=== PATIENT | male | born 1985 | race Caucasian/White ===

== ENCOUNTER 2020-09-15 06:52 | Outpatient (CLI) | payer OTHER ==
[2020-09-15 17:22] LABS: #Basophils 0.1 10x3/uL (0.0-0.2); #Eosinphils 0.3 10x3/uL (0.0-0.5); #Monocytes 0.8 10x3/uL (0.0-1.1); #Neutrophils 5.2 10x3/uL (1.5-8.4); %Basophils 0.8 % (0.0-2.0); %Eosinophils 3.4 % (0.0-6.0); %Lymphocytes 35.3 % (18.0-47.0); %Neutrophils 52.3 % (40.0-75.0); Hemoglobin 15.2 g/dL (14.0-18.0); Mean Corpuscular Hemoglobin 31.3 PG (27.0-33.0); Mean Corpuscular Volume 94.7 fl (80.0-100.0); Mean Platelet Volume 10.8 fl (7.4-10.4); Platelet Count 314 10x3/uL (130-400); RBC Distribution Width 13.6 % (11.5-14.5); Red Blood Cell (RBC) Count 4.86 10x6/uL (4.40-5.80); White Blood Cell (WBC) Count 9.9 10x3/uL (4.5-11.0)
[2020-09-16 02:13] LABS: SARS-CoV-2 MS2 Positive; SARS-CoV-2 N Gene Negative; SARS-CoV-2 S Gene Negative; SARS-CoV-2 by NAA Not Detected (NotDetected); SARS-CoV-2 orf1ab Negative
== END 2020-09-15 06:53 | disposition home or self-care (01) ==
LOC: LABBT 06:52
PROVIDERS: ATTEND Orthopaedic Surgery
DX: Z01.812 Encounter for preprocedural laboratory examination (principal); Z20.828 Contact with and (suspected) exposure to other viral communicable diseases; S83.281A Other tear of lateral meniscus, current injury, right knee, initial encounter; S83.241A Other tear of medial meniscus, current injury, right knee, initial encounter; M23.8X1 Other internal derangements of right knee
CPT/HCPCS: 85025; 87635; U0003

== ENCOUNTER 2020-09-18 06:09 | Day surgery (SDC) | payer OTHER ==
[2020-09-17 12:51] VITALS: BMI 23.7
[2020-09-18] MEDS ORDERED: Lidocaine 1% (PF) 30 ML VIAL ONE (06:41)
[2020-09-18] MEDS ORDERED: Fentanyl 100 MCG/2 ML VIAL ONE ×3 (06:41→09:41)
[2020-09-18] MEDS ORDERED: Midazolam HCl 2 mg/2 ml Vial ONE ×2 (06:41→07:29)
[2020-09-18] MEDS ORDERED: Fentanyl 100 MCG/2 ML VIAL SLOW IVP PRN (07:19)
[2020-09-18] MEDS ORDERED: Promethazine HCl 25 MG/ML VIAL IM PRN (07:30)
[2020-09-18] MEDS ORDERED: HYDROcodone/Acetaminophen 10/325 mg Tablet PO PRN ×2 (07:30)
[2020-09-18] MEDS ORDERED: Ropivacaine 0.2% 550 ML 550 ML NERVE BLCK SCH (07:30)
[2020-09-18] MEDS ORDERED: traMADol HCl 50 MG TAB PO PRN ×2 (07:30)
[2020-09-18] MEDS ORDERED: Zolpidem Tartrate 5 MG TAB PO PRN (07:30)
[2020-09-18] MEDS ORDERED: Ondansetron PF 4 MG/2 ML Vial IVP PRN (07:30)
--- NOTE | 2020-09-18 10:27 | OP ---
DATE OF PROCEDURE: 09/18/2020 PREOPERATIVE DIAGNOSES: 1. Right anterior cruciate ligament chronic tear. 2. Right knee lateral meniscus tears. 3. Grade 3 chondral defect. POSTOPERATIVE DIAGNOSES: 1. Chronic right anterior cruciate ligament tear. 2. Bucket-handle medial meniscus tear, free floating meniscal fragments. 3. Complex tear, lateral meniscus, with free-floating fragment, stable roots; grade 3 medial femoral condyle defect. 4. Loose body. PROCEDURES PERFORMED: 1. Right anterior cruciate ligament reconstruction. 2. Medial and lateral meniscectomy. [employer]: Bryan Osorio PA-C ANESTHESIOLOGIST: Karan Redding MD ANESTHESIA: The patient received a general intubation with adductor canal catheter. ESTIMATED BLOOD LOSS: Less than 30 mL. TOURNIQUET TIME: 61 minutes at 300 mmHg. ANTIBIOTICS: Ancef 2 g. IMPLANTS: Achilles tendon pre-shaped allograft FastThread, 9 x 30 BioComposite interference screw, 7 x 25 mm cannulated interference screw, and a 6.5 x 45 mm cortical screw with spiked washer. COMPLICATIONS: None. HISTORY OF PRESENT ILLNESS: Mr. Weeks is a 35-year-old male with right knee instability. The patient is a labor. He continues to have instability events. He had long-term, at least over a year, evidence of being knowing about both ACL and the medial and lateral meniscus. I discussed with him the reconstruction at that point, but he did not proceed. He came back with a repeat MRI showing similar large medial and lateral menisci, grade 3 changes of the medial femoral condyle, and chronic ACL tear. The patient has symptomatic instability, did not desire now autograft for concern for kneeling and anterior knee pain. Therefore, he elected for an allograft. I discussed the risks and benefits of the surgery to include pain, scar, bleeding, infection, damage to vital structures, decreased range of motion and strength, continued pain despite surgical intervention, need for further surgeries, damage to vital structures, and loss of life or limb. The patient and family understood the risks and benefits and elected to proceed. DESCRIPTION OF PROCEDURE: Time-out was performed designating the patient's right lower extremity as the operative site based on site, consents, and marking. After time-out, the patient's right lower extremity was prepped and draped in a sterile fashion. We made an anterolateral working portal, anteromedial portal, excised the fat pad, and looked within the knee joint. There were two large meniscal fragments that were free-floating in the notch, which were removed. The second with a flipped up portion of the lateral meniscus. The patient had a bucket-handle meniscus with some tearing anteriorly near the root and a little free flap as well as some degenerative complex tearing posteromedially. The patient had an obvious chronic ACL and a loose body noted within the notch. We did our diagnostic scope looking in the pouch, which showed no loose bodies medially or laterally. We removed the loose bodies as well as the medial and lateral meniscus free flaps. We started the medial compartment. We debrided the anterior flap of the root, cleaned it down to a stable remnant, and posteriorly debrided the complex tear. It was stable. No extrusion. I did not touch or affect the patient's grade 3 lesion on his medial femoral condyle, moved laterally and there was obviously a complex tear, which looked like delamination, may also be a bucket-handle component of the tear that was debrided to stable remnant. There was still remnant menisci also laterally without any full-thickness cartilage defects noted. After completing our medial and lateral meniscectomy and removed our loose body, we went back to the ACL. We performed our notchplasty. Using our anteromedial portal, we placed our guide pin in the high flex position, drilled 30 mm, used a 10 mm blunt-tip probe to ensure good size for our graft. We then moved to place our point guide, made our skin incision off the tibia about a thumb's breath away from the medial tibia. We took down the medial soft tissues to expose the bone. We then drilled our tibial tunnel, cleaned up the site for the graft. We then placed our passing suture, passed the graft into place, and placed within it. Using Nitinol wire, we placed a 7 x 25 mm graft. We had good stability and did not want to move in place. We then moved to the patient's tibial tunnel. We placed a 9 x 30 BioComposite interference screw with the knee in extension and tension on the graft. We then placed small stab hole through the tendon, drilled and tapped a spiked washer and passed that through cutting end of the graft off, washing and closing with 0, 2-0, and roxann. The patient will be weightbearing as tolerated. The patient's outlook is guarded. Given his degenerative changes, I am hopeful this will stabilize his knee, but long-term potentially he will likely have development of arthritic changes. Job ID: [id number] [facility]
[2020-09-18] MEDS ORDERED: HYDROcodone/Acetaminophen 5/325 mg Tablet ONE (11:12)
[2020-09-18] MEDS ORDERED: Lidocaine 1% PF 5 ML VIAL ONE (11:46)
[2020-09-18] MEDS ORDERED: Ketorolac Tromethamine 30 MG/ML VIAL ONE (11:46)
[2020-09-18] MEDS ORDERED: Bupivacaine HCl 0.5%/Epinephrine 1:200,000/PF 30 ml Vial ONE (11:46)
[2020-09-18] MEDS ORDERED: Ondansetron PF 4 MG/2 ML Vial ONE ×2 (11:46)
[2020-09-18] MEDS ORDERED: PROPOFOL 200 MG/20 ML VIAL ONE (11:46)
[2020-09-18] MEDS ORDERED: Ketorolac Tromethamine 30 MG/ML VIAL IVP SCH (12:00)
== END 2020-09-18 12:15 | disposition home or self-care (01) ==
LOC: SDC 06:09
PROVIDERS: ATTEND Orthopaedic Surgery
PROC: 0MQN4ZZ Repair Right Knee Bursa and Ligament, Percutaneous Endoscopic Approach (ICD-10-PCS; principal; 2020-09-18)
PROC: 0SBC4ZZ Excision of Right Knee Joint, Percutaneous Endoscopic Approach (ICD-10-PCS; principal; 2020-09-18)
PROC: 3E0T3BZ Introduction of Anesthetic Agent into Peripheral Nerves and Plexi, Percutaneous Approach (ICD-10-PCS; principal; 2020-09-18)
DX: S83.511A Sprain of anterior cruciate ligament of right knee, initial encounter (principal); S83.211A Bucket-handle tear of medial meniscus, current injury, right knee, initial encounter; S83.271A Complex tear of lateral meniscus, current injury, right knee, initial encounter; M23.41 Loose body in knee, right knee; G89.18 Other acute postprocedural pain; F41.9 Anxiety disorder, unspecified
CPT/HCPCS: A4306; C1713; J0690; J1885; J2001; J2250; J2405; J2704; J2795; J3010